=== PATIENT | female | born 1975 | race Two or more races ===

== ENCOUNTER 2023-12-27 14:29 | Emergency (ER) | payer OTHER ==
[~2023-12-27] VITALS: Ht 157.5 cm; Wt 67.3 kg
[2023-12-27] MEDS: SODIUM CHLORIDE 0.9% 1,000 ML IV ONE (16:04)
[2023-12-27 16:17] LABS: Basophils # (auto) 0.1 10 ^3/uL (0-0.2); Basophils % (auto) 0.4 % (0.0-2.0); Eosinophils # (auto) 0 10 ^3/uL (0-0.8); Eosinophils % (auto) 0.3 % (0.0-7.0); Hematocrit 40.2 % (36.0-46.0); Hemoglobin 13.4 g/dL (12.2-16.2); Lymphocytes # (auto) 1.2 10 ^3/uL (0.4-5.4); Lymphocytes % (auto) 6.5 % (10.0-50.0); Mean Corpuscular Hemoglobin 29.8 pg (28.0-32.0); Mean Corpuscular Hgb Conc. 33.3 g/dL (32.0-36.0); Mean Corpuscular Volume 89.5 fL (80.0-100.0); Monocytes # (auto) 0.7 10 ^3/uL (0-1.3); Monocytes % (auto) 3.8 % (0.0-12.0); Neutrophils # (auto) 16.4 10 ^3/uL (1.6-8.6); Red Blood Cells 4.48 10^6/uL (4.0-5.20); Red Cell Distribution Width 13.8 % (11.8-14.3); White Blood Cell 18.4 10^3/uL (4.4-10.8)
[2023-12-27 16:28] LABS: Chloride 107 mmol/L (98-107); Potassium 3.2 mmol/L (3.5-5.1); Sodium 141 mmol/L (136-145)
[2023-12-27 16:29] LABS: Rapid Strep A Screen-Throat Negative
[2023-12-27 16:29] LABS: Anion Gap 9 (5-15); Calcium 9.6 mg/dL (8.5-10.1); Carbon Dioxide 25 mmol/L (20-30)
[2023-12-27 16:33] LABS: Urine Bacteria FEW /hpf (None Seen); Urine Blood 2+ /uL (Negative); Urine Clarity Turbid (Clear); Urine Color Yellow (Yellow); Urine Mucus FEW (None Seen); Urine Protein, UAD 1+ (Negative); Urine Specific Gravity 1.023 (1.001-1.035); Urine Urobilinogen Normal (Negative); Urine WBC 12 /hpf (0 - 5); Urine pH 5.5 (5.0-9.0)
[2023-12-27 16:34] LABS: BUN/Creatinine Ratio 20.3 (10.0-20.0); Blood Urea Nitrogen 13 mg/dL (9-23); Glucose 112 mg/dL (74-106)
[2023-12-27 16:37] VITALS: BP 139/79; PULSE 68; RESP 16; TEMP 98.2; O2SAT 97
[2023-12-27] MEDS: ONDANSETRON HCL 4 MG/2 ML VIAL IV ONE (16:39)
[2023-12-27] MEDS: cefTRIAXone 1GM/50ML D5W 50 ML IV ONE (16:41)
[2023-12-27] MEDS: POTASSIUM CHL 20 Meq TABLET PO ONE (17:25)
[2023-12-27] MEDS ORDERED: ZOFR4T PO (17:25)
== END 2023-12-27 17:34 | disposition home or self-care (01) ==
LOC: ER 14:29
DX: J03.90 Acute tonsillitis, unspecified (principal); H66.92 Otitis media, unspecified, left ear; R11.2 Nausea with vomiting, unspecified; Z79.899 Other long term (current) drug therapy
CPT/HCPCS: 36415; 80048; 81001; 85025; 87070; 87880; 96361; 96365; 96375; 99284; J0696; J2405; J7030